=== PATIENT | female | born 1945 | race Caucasian/White ===

== ENCOUNTER 2022-08-10 21:04 | Emergency (ER) | payer MEDICARE ==
[~2022-08-10] VITALS: Ht 162.5 cm; Wt 93.0 kg
[2022-08-10 21:30] LABS: BASO % 0.2 % (0.0-1.0); EOS # 0.1 10*3/uL (0.0-0.4); HEMATOCRIT 45.9 % (37.0-47.0); LYMPH # 1.8 10*3/uL (1.3-4.4); LYMPH % 12.3 % (27.0-41.0); MEAN CELL VOLUME 87.1 fl (81.0-99.0); MEAN CORPUSCULAR HGB 28.7 pg (27.0-31.0); MEAN CORPUSCULAR HGB CONC 32.9 g/dl (33.0-37.0); MEAN PLATELET VOLUME 11.1 fl (9.6-12.3); MONO % 6.6 % (3.0-9.0); NEUT # 11.5 10*3/uL (2.3-7.9); NEUT % 79.5 % (47.0-73.0); PLATELET COUNT AUTOMATED 239 10*3/uL (130-400); RED BLOOD COUNT 5.27 10*6/uL (4.10-5.10); RED CELL DISTRI WIDTH 14.6 % (0-14.5); WHITE BLOOD COUNT 14.4 10*3/uL (4.8-10.8)
[2022-08-10 21:44] LABS: ALKALINE PHOSPHATASE 152 U/L (46-116); BUN 14 mg/dl (9-23); CHLORIDE 100 mmol/L (98-107); POTASSIUM 4.2 mmol/L (3.4-5.1); SGPT/ALT 32 U/L (10-49); TOTAL PROTEIN 6.2 gm/dL (6.0-8.0)
[2022-08-10 22:02] LABS: BILIRUBIN Negative (Negative); BLOOD Negative (Negative); CLARITY Clear (Clear); COLOR Yellow (Yellow); GLUCOSE 3+ (Negative); KETONE Negative (Negative); LEUKO ESTERASE Negative (Negative); NITRITE Negative (Negative); PH 6.5 (4.5-8.0); SPECIFIC GRAVITY 1.025 (1.001-1.030); UROBILINOGEN 0.2 E.U./dl (0.0-1.0)
== END 2022-08-11 03:00 | disposition home or self-care (01) ==
LOC: ED 21:04
PROVIDERS: Internal Medicine
DX: D72.829 Elevated white blood cell count, unspecified (principal); E87.20 Acidosis, unspecified; R73.9 Hyperglycemia, unspecified

== ENCOUNTER 2023-08-12 19:05 | Emergency (ER) | payer MEDICARE ==
[~2023-08-12] VITALS: Ht 152.4 cm; Wt 81.6 kg
[~2023-08-12 19:05] MED LIST: AMLODIPINE BES2.5 MG PO; ASPIRIN ADULT L81 M1 PO; ATORVASTATIN CA80 M1 PO; BACLOFEN20 M1 PO; CIPRO500 MG PO; JANUVIA100 MG PO; LEVOTHYROXINE100 MC1 PO; METOPROLOL TART50 M1 PO; VITAMIN A PO; VITAMIN C1000 M5 PO; VITAMIN E180 M1 PO
[2023-08-12 19:34] LABS: BASO % 0.4 % (0.0-1.0); EOS # 0.4 10*3/uL (0.0-0.4); EOS % 3.5 % (1.0-4.0); HEMATOCRIT 44.4 % (37.0-47.0); LYMPH # 2.7 10*3/uL (1.3-4.4); LYMPH % 24.6 % (27.0-41.0); MEAN CELL VOLUME 87.9 fl (81.0-99.0); MEAN CORPUSCULAR HGB 26.9 pg (27.0-31.0); MEAN CORPUSCULAR HGB CONC 30.6 g/dl (33.0-37.0); MEAN PLATELET VOLUME 10.4 fl (9.6-12.3); MONO # 0.8 10*3/uL (0.1-1.0); MONO % 7.1 % (3.0-9.0); NEUT % 64.1 % (47.0-73.0); PLATELET COUNT AUTOMATED 249 10*3/uL (130-400); RED BLOOD COUNT 5.05 10*6/uL (4.10-5.10); RED CELL DISTRI WIDTH 16.5 % (0-14.5)
[2023-08-12 19:56] LABS: ALKALINE PHOSPHATASE 147 U/L (46-116); BUN 13 mg/dl (9-23); CHLORIDE 104 mmol/L (98-107); POTASSIUM 3.9 mmol/L (3.4-5.1); SGPT/ALT 18 U/L (5-49)
[2023-08-12 20:00] LABS: BILIRUBIN Negative (Negative); BLOOD 3+ (Negative); CLARITY Turbid (Clear); COLOR Yellow (Yellow); GLUCOSE Negative (Negative); KETONE Negative (Negative); LEUKO ESTERASE 3+ (Negative); NITRITE Negative (Negative)
[2023-08-12 20:12] LABS: BACTERIA 2+; RBC 21-30 rbc/hpf (0-2); WBC TNTC wbc/hpf (0-5)
[2023-08-12] MEDS ORDERED: Sulfamethoxazole/Trimethopri 1 TAB TAB PO ONE (20:30)
[2023-08-12] MEDS ORDERED: CALCIUM 500 MG1 EAC4 PO (21:19)
[2023-08-12] MEDS ORDERED: STOOL SOFTENER100 M3 PO (21:20)
[2023-08-12] MEDS ORDERED: MULTIPLE VITAM1 EAC1 PO (21:21)
[2023-08-12] MEDS ORDERED: CRANBERRY200 MG PO (21:22)
[2023-08-12] MEDS ORDERED: SEPTDS PO (21:34)
== END 2023-08-12 22:39 | disposition home or self-care (01) ==
LOC: ED 19:05
PROVIDERS: Physician Assistant Medical
DX: N39.0 Urinary tract infection, site not specified (principal); I25.2 Old myocardial infarction; Z88.0 Allergy status to penicillin; Z88.1 Allergy status to other antibiotic agents; Z88.8 Allergy status to other drugs, medicaments and biological substances; Z79.899 Other long term (current) drug therapy; Z79.82 Long term (current) use of aspirin; Z90.711 Acquired absence of uterus with remaining cervical stump; Z86.73 Personal history of transient ischemic attack (TIA), and cerebral infarction without residual deficits

== ENCOUNTER 2023-09-12 09:06 | Emergency (ER) | payer MEDICARE ==
[~2023-09-12] VITALS: Ht 167.6 cm; Wt 77.1 kg
[~2023-09-12 09:06] MED LIST changes: +CALCIUM 500 MG1 EAC4 PO; +CRANBERRY200 MG PO; +MULTIPLE VITAM1 EAC1 PO; +SEPTDS PO; +STOOL SOFTENER100 M3 PO
[2023-09-12 09:37] LABS: HEMATOCRIT 38.6 % (37.0-47.0); MEAN CORPUSCULAR HGB 27.8 pg (27.0-31.0); MEAN CORPUSCULAR HGB CONC 32.4 g/dl (33.0-37.0); PLATELET COUNT AUTOMATED 253 10*3/uL (130-400); RED BLOOD COUNT 4.49 10*6/uL (4.10-5.10); RED CELL DISTRI WIDTH 17.2 % (0-14.5); WHITE BLOOD COUNT 30.8 10*3/uL (4.8-10.8)
[2023-09-12 09:38] LABS: MANUAL DIFF REFLEX YES
[2023-09-12 09:44] LABS: ACT PARTIAL THROMBO TIME 29.9 SECONDS (20.0-32.1)
[2023-09-12 09:52] LABS: POTASSIUM 4.1 mmol/L (3.4-5.1); TOTAL PROTEIN 6.7 gm/dL (6.0-8.0)
[2023-09-12 10:17] LABS: PLATELET SUFFICIENCY NORMAL (NORMAL); TOTAL CELLS COUNTED 100 #CELLS
[2023-09-12] MEDS ORDERED: SODIUM CHLORIDE 0.9% 1,000 ML IV SCH (10:20)
[2023-09-12 10:49] LABS: BILIRUBIN Negative (Negative); BLOOD 2+ (Negative); CLARITY Turbid (Clear); COLOR Yellow (Yellow); GLUCOSE Negative (Negative); KETONE Negative (Negative); LEUKO ESTERASE 3+ (Negative); NITRITE Negative (Negative); UROBILINOGEN 0.2 E.U./dl (0.0-1.0)
[2023-09-12 10:56] LABS: BACTERIA 1+; RBC TNTC rbc/hpf (0-2); WBC TNTC wbc/hpf (0-5)
[2023-09-12 11:00] LABS: URINE AMPHETAMINES Negative (1000ng/ml); URINE BARBITURATES Negative (200ng/ml); URINE BENZODIAZEPINES Negative (200ng/ml); URINE CANNABINOIDS (THC) Negative (50ng/ml); URINE COCAINE Negative (300ng/ml); URINE METHADONE Negative (300ng/ml); URINE OPIATES Negative (300ng/ml); URINE PHENCYCLIDINE Negative (25ng/ml)
[2023-09-12] MEDS ORDERED: AZITHROMYCIN 250 ML IV ONE (11:00)
[2023-09-12] MEDS ORDERED: Ceftriaxone Sodium 1 GM/10 ML SYR IV ONE (11:00)
[2023-09-12] MEDS ORDERED: Ondansetron Hydrochloride 4 MG/2 ML VIAL IV ONE (15:05)
[2023-09-13] MEDS ORDERED: ACETAMINOPHEN 650 MG SUPP R ONE (06:35)
[2023-09-13] MEDS ORDERED: Ceftriaxone Sodium 1 GM/10 ML SYR IV ONE (07:20)
[2023-09-13] MEDS ORDERED: SODIUM CHLORIDE 0.9% 1,000 ML IV ONE (08:55)
== END 2023-09-13 10:00 | disposition short-term general hospital (02) ==
LOC: ED 09:06
PROVIDERS: Internal Medicine
DX: A41.9 Sepsis, unspecified organism (principal); R65.20 Severe sepsis without septic shock; N39.0 Urinary tract infection, site not specified; N20.0 Calculus of kidney; Z88.0 Allergy status to penicillin; Z88.1 Allergy status to other antibiotic agents; Z88.8 Allergy status to other drugs, medicaments and biological substances; Z79.82 Long term (current) use of aspirin; Z79.899 Other long term (current) drug therapy; Z90.711 Acquired absence of uterus with remaining cervical stump; Z86.73 Personal history of transient ischemic attack (TIA), and cerebral infarction without residual deficits

== ENCOUNTER → 2023-10-07 | Outpatient (CLI) | payer MEDICARE | END | disposition home or self-care (01) | LOC: CT 10:57 | PROVIDERS: ATTEND Urology | DX: N20.0 Calculus of kidney (principal); I25.10 Atherosclerotic heart disease of native coronary artery without angina pectoris; R60.1 Generalized edema; E46 Unspecified protein-calorie malnutrition; I31.39 Other pericardial effusion (noninflammatory); I71.40 Abdominal aortic aneurysm, without rupture, unspecified; Z98.890 Other specified postprocedural states; N13.30 Unspecified hydronephrosis; I70.0 Atherosclerosis of aorta ==

== ENCOUNTER → 2024-02-29 | Outpatient (CLI) | payer MEDICARE | END | disposition home or self-care (01) | LOC: CT 13:00 | PROVIDERS: ATTEND Urology | DX: N20.0 Calculus of kidney (principal); J98.11 Atelectasis; J90 Pleural effusion, not elsewhere classified; K57.30 Diverticulosis of large intestine without perforation or abscess without bleeding; K80.20 Calculus of gallbladder without cholecystitis without obstruction; R19.5 Other fecal abnormalities; Z90.49 Acquired absence of other specified parts of digestive tract ==

== ENCOUNTER → 2024-06-01 | Outpatient (CLI) | payer MEDICARE | END | disposition home or self-care (01) | LOC: CT 14:57 | PROVIDERS: ATTEND Urology | DX: N20.0 Calculus of kidney (principal); I51.7 Cardiomegaly; I25.10 Atherosclerotic heart disease of native coronary artery without angina pectoris; I31.39 Other pericardial effusion (noninflammatory); N13.30 Unspecified hydronephrosis; I70.0 Atherosclerosis of aorta; K76.0 Fatty (change of) liver, not elsewhere classified; Z90.49 Acquired absence of other specified parts of digestive tract ==

== ENCOUNTER → 2024-12-31 | Outpatient (CLI) | payer MEDICARE | END | disposition home or self-care (01) | LOC: CT 12-27 13:00 | PROVIDERS: ATTEND Urology | DX: N20.0 Calculus of kidney (principal); N30.90 Cystitis, unspecified without hematuria ==

== ENCOUNTER 2025-05-17 13:28 | Inpatient (IN) | payer MEDICARE ==
[~2025-05-17] VITALS: Ht 165.1 cm; Wt 78.5 kg
[2025-05-17 13:42] VITALS: BP 141/64
[2025-05-17 14:00] LABS: BASO # 0.0 10*3/uL (0.0-0.1); BASO % 0.2 % (0.0-1.0); EOS # 0.2 10*3/uL (0.0-0.4); EOS % 1.4 % (1.0-4.0); MEAN CELL VOLUME 89.0 fl (81.0-99.0); MEAN CORPUSCULAR HGB 28.2 pg (27.0-31.0); MEAN PLATELET VOLUME 10.8 fl (9.6-12.3); MONO # 0.9 10*3/uL (0.1-1.0); MONO % 5.7 % (3.0-9.0); NEUT # 12.1 10*3/uL (2.3-7.9); NEUT % 75.3 % (47.0-73.0); NUCLEATED RED BLOOD CELL 0.0 % (0.0-0.0); NUCLEATED RED BLOOD CELL 0.0 10*3/uL (0.0-0.0); PLATELET COUNT AUTOMATED 248 10*3/uL (130-400); RED CELL DISTRI WIDTH 16.5 % (0-14.5)
[2025-05-17 14:20] LABS: BUN 17 mg/dl (9-23)
[2025-05-17 14:23] LABS: BILIRUBIN Negative (Negative); BLOOD 2+ (Negative); CLARITY Turbid (Clear); COLOR Yellow (Yellow); KETONE Negative (Negative); LEUKO ESTERASE 3+ (Negative); NITRITE Negative (Negative); PH 7.0 (4.5-8.0); SPECIFIC GRAVITY 1.015 (1.001-1.030); UROBILINOGEN 1.0 E.U./dl (0.0-1.0)
[2025-05-17] MEDS ORDERED: SODIUM CHLORIDE 0.9% 1,000 ML IV ONE (14:30)
[2025-05-17 14:43] LABS: BACTERIA 4+; WBC TNTC wbc/hpf (0-5)
[2025-05-17] MEDS ORDERED: Ondansetron Hydrochloride 4 MG/2 ML VIAL IV PRN (15:50)
[2025-05-17] MEDS ORDERED: ACETAMINOPHEN 325 MG TAB PO PRN (15:50)
[2025-05-17] MEDS ORDERED: ACETAMINOPHEN 650 MG SUPP R PRN (15:50)
[2025-05-17] MEDS ORDERED: BISACODYL 5 MG TAB PO PRN (15:50)
[2025-05-17] MEDS ORDERED: BISACODYL 10 MG SUPP R PRN (15:50)
[2025-05-17] MEDS ORDERED: MINERAL OIL 133 ML BOT R ONE (17:35)
[2025-05-17 20:00] VITALS: BP 122/48
[2025-05-17] MEDS ORDERED: DEXTROSE 50% 25 GM/50 ML VIAL IV PRN (20:10)
[2025-05-17] MEDS ORDERED: BACLOFEN 10 MG TAB PO SCH (22:00)
[2025-05-17] MEDS ORDERED: ATORVASTATIN CALCIUM 80 MG TAB PO SCH (22:00)
[2025-05-17] MEDS ORDERED: INSULIN LISPRO 1 UNIT/0.01 ML SQ SCH (22:00)
[2025-05-18] VITALS: BP 93/39
[2025-05-18 06:29] LABS: BASO # 0.0 10*3/uL (0.0-0.1); BASO % 0.2 % (0.0-1.0); EOS # 0.3 10*3/uL (0.0-0.4); EOS % 3.0 % (1.0-4.0); MEAN CELL VOLUME 88.0 fl (81.0-99.0); MEAN CORPUSCULAR HGB 28.1 pg (27.0-31.0); MEAN PLATELET VOLUME 11.3 fl (9.6-12.3); MONO # 0.7 10*3/uL (0.1-1.0); MONO % 6.4 % (3.0-9.0); NEUT # 7.2 10*3/uL (2.3-7.9); NEUT % 66.2 % (47.0-73.0); NUCLEATED RED BLOOD CELL 0.0 % (0.0-0.0); NUCLEATED RED BLOOD CELL 0.0 10*3/uL (0.0-0.0); PLATELET COUNT AUTOMATED 231 10*3/uL (130-400); RED CELL DISTRI WIDTH 16.6 % (0-14.5)
[2025-05-18 06:38] LABS: BUN 15 mg/dl (9-23); SGPT/ALT 33 U/L (5-49)
[2025-05-18 08:00] VITALS: BP 132/70; BP 132/709
[2025-05-18] MEDS ORDERED: ASPIRIN, CHEWABLE 81 MG TAB PO SCH (10:00)
[2025-05-18] MEDS ORDERED: Polyethylene Glycol 3350 17 GM PACKET PO SCH (10:00)
[2025-05-18] MEDS ORDERED: CIPRO500 MG PO (12:40)
[2025-05-18] MEDS ORDERED: GOOD SENSE400 MG/5 M PO (13:00)
== END 2025-05-18 13:40 | disposition home or self-care (01) | DRG 689 ==
LOC: ED 13:28 → EDHOLD 15:43 → 5E 18:04
PROVIDERS: Nurse Practitioner Family; Student in an Organized Health Care Education/Training Program; ADMIT Internal Medicine; ATTEND Internal Medicine
DX: N30.01 Acute cystitis with hematuria (principal); G93.41 Metabolic encephalopathy; E87.20 Acidosis, unspecified; K52.9 Noninfective gastroenteritis and colitis, unspecified; E03.9 Hypothyroidism, unspecified; E78.2 Mixed hyperlipidemia; G35.D Multiple sclerosis, unspecified; M81.0 Age-related osteoporosis without current pathological fracture; I10 Essential (primary) hypertension; E11.9 Type 2 diabetes mellitus without complications; K56.41 Fecal impaction; N20.0 Calculus of kidney; D72.829 Elevated white blood cell count, unspecified; Z90.710 Acquired absence of both cervix and uterus; Z80.8 Family history of malignant neoplasm of other organs or systems; Z88.0 Allergy status to penicillin; Z88.8 Allergy status to other drugs, medicaments and biological substances; Z86.73 Personal history of transient ischemic attack (TIA), and cerebral infarction without residual deficits; Z85.43 Personal history of malignant neoplasm of ovary